=== PATIENT | male | born 1965 | race Caucasian/White ===

== ENCOUNTER 2024-12-01 12:07 | Emergency (ER) | payer BC, SELFPAY ==
[2024-12-01 12:15] VITALS: BP 130/86
[2024-12-01 13:00] LABS: % Basophils 0.4 % (0-2); % Immature Granulocytes 0.2 % (0-0.5); % Lymphocytes 28.1 % (20.5-51.1); % Monocytes 9.3 % (1.7-9.3); Absolute Eosinophils 0.1 10^3/uL (0-0.7); Absolute Lymphocytes 1.3 10^3/uL (1.2-3.4); Absolute Monocytes 0.4 10^3/uL (0.1-0.6); Absolute Neutrophils 2.8 10^3/uL (1.4-6.5); Hematocrit 40.8 % (39.0-52.0); Hemoglobin 14.5 g/dL (13.0-18.0); Mean Corp Hgb Conc. 35.5 g/dL (33.0-37.0); Mean Corpuscular Hgb 31.1 pg (27.0-31.0); Mean Corpuscular Volume 87.6 fL (80.0-94.0); Mean Platelet Volume 9.5 fL (7.4-10.4); Nucleated Red Blood Cells % 0 % (-); Platelet Count 175 10^3/uL (130-400); Red Blood Cell Count 4.66 10^6/uL (4.70-6.10); Red Cell Dist. Width 12.8 % (11.5-14.5); White Blood Cell Count 4.7 10^3/uL (4.8-10.8)
[2024-12-01 13:09] LABS: ALT (SGPT) 30 U/L (0-50); AST (SGOT) 21 U/L (17-59); Albumin 4.5 g/dl (3.5-5.0); Alkaline Phosphatase 65 U/L (38-126); Blood Urea Nitrogen 26 mg/dl (9-20); Calcium 9.3 mg/dl (8.4-10.2); Carbon Dioxide 26 mmol/L (22-30); Chloride 101 mmol/L (98-107); Glucose 96 mg/dl (70-99); Potassium 4.4 mmol/L (3.5-5.1); Sodium 135 mmol/L (135-145); Total Bilirubin 0.7 mg/dl (0.2-1.3); Total Protein 6.9 g/dl (6.3-8.2); eGFR > 60.00
[2024-12-01 13:21] LABS: Troponin I < 0.012 ng/ml
--- NOTE | 2024-12-01 14:35 | ED.GENMED ---
History of Present Illness
General
Chief Complaint: Chest Pain
Source: patient
Exam Limitations: none
Time Seen by Provider: 12/01/24 14:07
Nursing documentation reviewed up to this point in time: agreed with
History of Present Illness
History of Present Illness:
59-year-old male with history of HTN, HLD, family history of CAD presents for bilateral 'pectoral' area pains for the past 2 nights, once he is up and around it goes away. This has subsided. This morning at 5 AM he got up and felt okay but by 10
AM he developed pain just to the left of the mid sternum that is worse when he touches and presses on it. He states it is there now and is 'mild.' He denies shortness of breath, denies nausea or vomiting. Denies lightheadedness. Feels well
otherwise
No recollection of overuse or injury.
Past History
Past History
ED Past Medical History: HTN and Hypercholesterolemia
ED Past Surgical History: None (N/A)
Social History
Tobacco: Non-smoker
Alcohol: Occasional
Living: with family
Employment: Employed
Review of Systems
Review of Systems
Allergies reviewed?: Yes
All Other Systems: ROS reviewed and negative except as documented in HPI and ROS
Constitutional: Denies fever or fatigue
Respiratory: Denies trouble breathing
Cardiac: Reports chest pain; Denies diaphoresis or palpitations
ABD/GI: Denies abdominal pain or nausea
Musculoskeletal: Reports no symptoms
Skin: Reports no symptoms
Neurological: Reports no symptoms
Phy Exam
Physical Exam
Physical Exam:
GENERAL: No acute distress. A&Ox3.
CONSTITUTIONAL: Afebrile.
EYES: clear, conjunctivae normal
ENMT: moist mucus membranes
RESPIRATORY: Regular respirations, nonlabored, lungs clear.
CARDIOVASCULAR: Regular rate and rhythm, no murmurs, no rubs.
GI: Soft, nontender, normal BS
MUSCULOSKELETAL: Point tender left mid sterno costal border. Moves with ease. Well perfused.
SKIN: Warm, dry, pink
PSYCH: Normal mood and affect. Well kept, interactive and appropriate
NEUROLOGIC: Awake, alert and oriented. No focal neurological deficits
Scores
Heart Score for Chest Pain Patients
STEMI patient?: Not applicable
Course
Orders/Labs/Results
Orders:
Orders
12/01/24 12:18
Electrocardiogram (*1) Urgent
Reason for Study: Chest Pain
EKG- Treatment ONCE
12/01/24 12:38
Complete Blood Count/With Diff Urgent
Comprehensive Metabolic Panel Urgent
Troponin I Urgent
Abnormal Lab Results
12/01/24
12:38
WBC 4.7 L 10^3/uL
(4.8-10.8)
RBC 4.66 L 10^6/uL
(4.70-6.10)
MCH 31.1 H pg
(27.0-31.0)
BUN 26 H mg/dl
(9-20)
12/01/24 12:38
12/01/24 12:38
Vital Signs
Initial and Last Documented VS:
Initial Vital Signs
Temp Pulse Resp BP Pulse Ox
98.4 F 76 18 130/86 98
12/01/24 12:15 12/01/24 12:15 12/01/24 12:15 12/01/24 12:15 12/01/24 12:15
Last Documented Vital Signs
Temp Pulse Resp BP Pulse Ox
98.4 F 76 18 130/86 98
12/01/24 12:15 12/01/24 12:15 12/01/24 12:15 12/01/24 12:15 12/01/24 12:15
MDM/Problems Addressed
Differential Diagnosis Includes:
CO, musculoskeletal pain, costochondritis
MDM/Problems Addressed:
59-year-old male with history of HTN, HLD, family history of CAD presents for bilateral 'pectoral' area pains for the past 2 nights, once he is up and around it goes away. This has subsided. This morning at 5 AM he got up and felt okay but by 10
AM he developed pain just to the left of the mid sternum that is worse when he touches and presses on it. He states it is there now and is 'mild.' He denies shortness of breath, denies nausea or vomiting. Denies lightheadedness. Feels well
otherwise
No recollection of overuse or injury.
Afebrile, NAD
EKG NSR
2:00 PM:
CBC normal
CBC with no clinically significant abnormality
Troponin normal
Pain is immediately reproducible and very localized at the left sternal costal border. Most likely musculoskeletal or costochondritis.
*Critical Care Note
Total Time (30-74mins, 75-104mins- exclusive of procedures): Not Applicable
ED Attending Note
-
Portions of this chart may have been created with voice recognition software.� Occasional wrong word or��sound alike� substitutions may have occurred due to the inherent limitations of voice recognition software.
Discharge Plan
Departure
Patient Disposition: Home (Routine Discharge)
Date of Disposition: 12/01/24
Time of Disposition: 14:32
Patient with high blood pressure during this ER visit?: No
Condition: Good
Discharge Problem:
Atypical chest pain
Instructions: Chest Pain That Is Not Caused by the Heart (DC), Costochondritis (DC)
Referrals:
Kimber Caba PA-C [Family Provider] - As needed
Activity Restrictions/Additional Instructions:
As we discussed, if your chest pain persists beyond this week, see your family doctor for reevaluation.
There is no indication in your workup here today that the pain is caused by your heart. It is most likely musculoskeletal or costochondritis.
Ibuprofen 600 mg (with food) every 6 hours as needed
Interventions
Interventions:
*Risk Screen - Suicide Last Done: 12/01/24 12:15
*General Assessment Last Done: 12/01/24 12:15
*Neglect/Abuse Screening Last Done: 12/01/24 12:15
*Nursing Disposition Last Done: 12/01/24 15:07
ED- Cardiac Assessment Last Done: 12/01/24 15:07
Discharge Date and Time
Discharge Date/Time: 12/01/24 15:08
Print Language: HONDURAN
== END 2024-12-01 15:08 | disposition home or self-care (01) ==
LOC: EMR 12:07
PROVIDERS: Emergency Medicine; EMERGENCY PHYSICIAN Emergency Medicine; FAMILY PHYSICIAN Physician Assistant
DX: R07.89 Other chest pain (principal); I10 Essential (primary) hypertension; E78.00 Pure hypercholesterolemia, unspecified; I25.10 Atherosclerotic heart disease of native coronary artery without angina pectoris; Z82.49 Family history of ischemic heart disease and other diseases of the circulatory system
CPT/HCPCS: 99283; 80053; 84484; 85025; 93005